=== PATIENT | male | born 1990 | race Caucasian/White ===

== ENCOUNTER 2020-04-30 20:08 | Emergency (ER) | payer OTHER ==
[2020-04-30 20:52] LABS: HEMOGLOBIN 17.3 gm/dl (14.0-17.5); RED BLOOD COUNT 5.68 M/UL (4.20-5.50)
[2020-04-30 21:06] LABS: BUN/CREATININE RATIO 16 (0-10)
[2020-04-30] MEDS ORDERED: PROVENTIL HFA6.7 GM INH (21:49)
== END 2020-04-30 23:28 | disposition home or self-care (01) ==
LOC: ER1 20:08
PROVIDERS: Physician Assistant
DX: U07.1 COVID-19 (principal); E11.9 Type 2 diabetes mellitus without complications; E05.90 Thyrotoxicosis, unspecified without thyrotoxic crisis or storm; Z88.6 Allergy status to analgesic agent
CPT/HCPCS: 36415; 71045; 80053; 85025; 93005; 96374; 99285; J1885; M0239

== ENCOUNTER 2020-11-29 20:42 | Emergency (ER) | payer OTHER ==
[~2020-11-29 20:42] MED LIST: PROVENTIL HFA6.7 GM INH
[2020-11-29 21:09] LABS: HEMOGLOBIN 17.4 gm/dl (14.0-17.5); RED BLOOD COUNT 5.61 M/UL (4.20-5.50); WHITE BLOOD COUNT 8.5 K/UL (4.5-11.0)
[2020-11-29 21:40] LABS: BUN/CREATININE RATIO 12 (0-10)
[2020-11-30] MEDS ORDERED: IBUPROFEN800 MG PO (00:25)
[2020-11-30] MEDS ORDERED: CEPHALEXIN500 M1 PO (00:25)
[2020-11-30] MEDS ORDERED: BACTRIM DS TAB1 EACH PO (00:25)
== END 2020-11-30 01:50 | disposition home or self-care (01) ==
LOC: ER1 20:42
PROVIDERS: Physician Assistant
DX: L03.316 Cellulitis of umbilicus (principal); E11.9 Type 2 diabetes mellitus without complications; Z90.89 Acquired absence of other organs; Z79.4 Long term (current) use of insulin; Z88.1 Allergy status to other antibiotic agents; Z88.5 Allergy status to narcotic agent
CPT/HCPCS: 80053; 81001; 83605; 83690; 85025; 99284; Q9967

== ENCOUNTER 2021-08-02 09:08 | Emergency (ER) | payer OTHER ==
[~2021-08-02 09:08] MED LIST changes: +BACTRIM DS TAB1 EACH PO; +CEPHALEXIN500 M1 PO; +IBUPROFEN800 MG PO
[2021-08-02 10:07] LABS: HEMOGLOBIN 16.5 gm/dl (14.0-17.5); RED BLOOD COUNT 5.54 M/UL (4.20-5.50); WHITE BLOOD COUNT 9.3 K/UL (4.5-11.0)
[2021-08-02 10:41] LABS: BUN/CREATININE RATIO 16 (0-10)
[2021-08-02] MEDS ORDERED: ZOFRAN 4 MG TAB4 MG PO (12:19)
[2021-08-02] MEDS ORDERED: BENTYL 20MG TAB20 MG PO (12:19)
== END 2021-08-02 13:07 | disposition home or self-care (01) ==
LOC: ER1 09:08
PROVIDERS: Physician Assistant
DX: R11.2 Nausea with vomiting, unspecified (principal); R19.7 Diarrhea, unspecified; E11.9 Type 2 diabetes mellitus without complications; E03.9 Hypothyroidism, unspecified; Z79.4 Long term (current) use of insulin; Z79.84 Long term (current) use of oral hypoglycemic drugs
CPT/HCPCS: 80053; 81001; 83605; 85025; 96374; 99284; J2405